=== PATIENT | female | born 1965 | race African-American/Black ===

== ENCOUNTER 2023-02-13 16:37 | Outpatient (CLI) | payer OTHER, SELFPAY ==
--- NOTE | ~2023-02-13 | US_ITS ---
US thyroid 02/13/2023 17:18 Indication: Status post thyroidectomy for thyroid cancer. Procedure: High-resolution Limited ultrasound of the thyroid bed Comparison: Parathyroid scan dated 11/09/2010 Findings: No evidence for residual thyroid tissue. At the level of the thyroid bed there is an oval h ypoechoic mass measuring 11 mm with peripheral vascularity, likely a lymph node. No significant fatty hilum. Impression: 1: Probable benign 11 mm lymph node at the level of the left thyroid bed. No evidence for residual th yroid tissue. Reviewed, dictated and finalized at location L. Impression: 1: Probable benign 11 mm lymph node at the level of the left thyroid bed. No ev idence for residual thyroid tissue.
== END 2023-02-13 16:38 | disposition home or self-care (01) ==
PROVIDERS: PCP Physician Assistant; Visit Provider Internal Medicine Endocrinology, Diabetes & Metabolism
DX: E89.0 Postprocedural hypothyroidism (principal)
CPT/HCPCS: 76536